=== PATIENT | male | born 1955 | race African-American/Black ===

== ENCOUNTER 2021-06-10 21:02 | Emergency (ER) | payer BC, OTHER ==
[~2021-06-10] VITALS: Ht 185.4 cm; Wt 78.0 kg
[2021-06-10 21:54] VITALS: BP 100/51
== END 2021-06-11 02:27 | disposition left against medical advice (07) ==
LOC: ER 21:02
DX: U07.1 COVID-19 (principal); J30.9 Allergic rhinitis, unspecified; Z98.890 Other specified postprocedural states
CPT/HCPCS: 87426; 99283